=== PATIENT | female | born 1950 | race American Indian/Alaskan Native ===

== ENCOUNTER 2017-06-23 10:33 | Emergency (ER) | payer SELFPAY ==
--- NOTE | 2017-06-23 12:53 | XRay Report ---
RIGHT KNEE, 3 views: History: Right knee pain. The bony architecture is intact without evidence of fracture or dislocation. Moderate tricompartmental osteoarthritic changes are identified. No significant soft tissue abnormality is seen. IMPRESSION: Osteoarthritis.
--- NOTE | 2017-06-23 12:54 | XRay Report ---
LEFT SHOULDER: History: Left shoulder pain. Routine views demonstrate normal bony and soft tissue structures with normal joint alignment of the shoulder. Mild osteoarthritic changes are noted at the a.c. joint. IMPRESSION: No acute injury is identified. Mild degenerative changes.
[2017-06-23 14:55] LABS: Basophils % (Auto) 0.7 % (0.0-1.8); Eosinophils # (Auto) 0.1 K/mm3 (0.0-0.4); Eosinophils % (Auto) 1.6 % (0.0-4.3); Hematocrit 40.2 % (30.3-42.9); Hemoglobin 13.1 gm/dl (10.1-14.3); Lymphocytes # (Auto) 2.2 K/mm3 (1.2-5.4); Lymphocytes % (Auto) 35.5 % (13.4-35.0); Mean Corpuscular HGB Conc 33 % (30-34); Mean Corpuscular Hemoglobin 32 pg (28-32); Mean Corpuscular Volume 98 fl (79-97); Monocytes # (Auto) 0.4 K/mm3 (0.0-0.8); Monocytes % (Auto) 6.9 % (0.0-7.3); Platelet Count 239 K/mm3 (140-440); Red Blood Count 4.09 M/mm3 (3.65-5.03)
[2017-06-23 15:10] VITALS: BP 142/119
[2017-06-23 15:16] LABS: BUN/Creatinine Ratio 20; Blood Urea Nitrogen 18 mg/dL (7-17); Calcium 10.4 mg/dL (8.4-10.2); Hemolysis Index 15
--- NOTE | 2017-06-23 15:21 | Emergency Department Report ---
HPI - General Chief Complaint: Extremity Problem,Nontraumatic Time Seen by Provider: 06/23/17 14:25 - HPI HPI: This is a 66 year-old female presents to the emergency department, driving herself and to be seen, with a complaint of right knee and left shoulder pain that is acute on chronic condition for her. She has a history of arthritis and thinks that may be this has been exacerbated. There has been no recent trauma. She denies any chest pain, short of breath, nausea, vomiting or fever. She took some ibuprofen for her symptoms with only some transient relief. She is not currently have a primary care physician. She is also here for medication refill. She has a history of diabetes on both pills and insulin and is out of her glipizide, Lantus and metformin. She has history of hypertension and is out of her amlodipine. She says that she does check her blood sugar and has been taking her medications but she is about out. She says that her last blood sugar check yesterday was 140. ED Past Medical Hx - Past Medical History Hx Hypertension: Yes Hx Diabetes: Yes Hx Arthritis: Yes - Surgical History Past Surgical History?: No - Social History Smoking Status: Never Smoker Substance Use Type: None - Medications Home Medications: Home Medications Medication Instructions Recorded Confirmed Last Taken Type Insulin Glargine [Lantus VIAL] 25 unit SUB-Q QHS #1 vial 06/23/17 Unknown Rx amLODIPine [Norvasc] 10 mg PO DAILY #30 tab 06/23/17 Unknown Rx glipiZIDE [Glipizide] 10 mg PO QDAY #30 tablet 06/23/17 Unknown Rx metFORMIN [Glucophage] 1,000 mg PO BID #120 tablet 06/23/17 Unknown Rx ED Review of Systems ROS: Stated complaint: PAIN Other details as noted in HPI Comment: All other systems reviewed and negative Constitutional: denies: chills, fever Eyes: denies: eye pain, eye discharge, vision change ENT: denies: ear pain, throat pain Respiratory: denies: cough, shortness of breath, wheezing Cardiovascular: denies: chest pain, palpitations Gastrointestinal: denies: abdominal pain, nausea, diarrhea Genitourinary: denies: urgency, dysuria, discharge Musculoskeletal: arthralgia. denies: joint swelling Skin: denies: rash, lesions Neurological: denies: headache, weakness, paresthesias Physical Exam - Physical Exam Vital Signs: Vital Signs 06/23/17 06/23/17 12:09 15:08 Temperature 99.1 F Pulse Rate 113 H 100 H Respiratory 22 20 Rate Blood Pressure 164/119 Blood Pressure 142/119 [Left] O2 Sat by Pulse 98 98 Oximetry Physical Exam: GENERAL: The patient is well-developed well-nourished. HENT: Normocephalic. Atraumatic. Patient has moist mucous membranes. EYES: Extraocular motions are intact. Pupils equal reactive to light bilaterally. NECK: Supple. Trachea is midline. CHEST/LUNGS: Clear to auscultation. There is no respiratory distress noted. HEART/CARDIOVASCULAR: Regular. There is no tachycardia. There is no murmur. ABDOMEN: Abdomen is soft, nontender. Patient has normal bowel sounds. There is no abdominal distention. Obese habitus. SKIN: Skin is warm and dry. NEURO: The patient is awake, alert, and oriented. The patient is cooperative. The patient has no focal neurologic deficits. The patient has normal speech and gait. MUSCULOSKELETAL: Mild tenderness palpation to the circumferential right knee but no deformity. Negative anterior and posterior drawer test. There is no limitation range of motion. There is no evidence of acute injury. ED Course Vital Signs 06/23/17 06/23/17 12:09 15:08 Temperature 99.1 F Pulse Rate 113 H 100 H Respiratory 22 20 Rate Blood Pressure 164/119 Blood Pressure 142/119 [Left] O2 Sat by Pulse 98 98 Oximetry ED Medical Decision Making - Lab Data Result diagrams: 06/23/17 14:34 06/23/17 14:34 - Radiology Data Radiology results: image reviewed interpreted by me: X-ray of the right knee and left shoulder do not show any fracture, dislocation or any acute process. - Medical Decision Making Regarding the patient's joint pain, she has x-rays that show significant arthritis but no fracture, does occasionally anything processes. She will be given a referral for an orthopedist. Patient's labs show some hyperglycemia but she does not appear to be in any diabetic ketoacidosis. Vital stable throughout ED course. She has hypertension but it improved without any significant intervention. The patient was given a refill of her diabetes and hypertension medications. She was given referrals for primary care physician and the orthopedist. She will try to make dietary and lifestyle changes to help with her blood pressure and diabetes. She will return to the ER with any worsening of her symptoms or any acute distress. Despite her joint pain, patient was seen ambulatory in the emergency department and appeared stable. Critical Care Time: No Critical care attestation.: If time is entered above; I have spent that time in minutes in the direct care of this critically ill patient, excluding procedure time. ED Disposition Clinical Impression: Medication refill, Hyperglycemia Left shoulder pain Qualifiers: Chronicity: unspecified Qualified Code(s): M25.512 - Pain in left shoulder Right knee pain Qualifiers: Chronicity: unspecified Qualified Code(s): M25.561 - Pain in right knee Osteoarthritis Qualifiers: Osteoarthritis location: unspecified site Osteoarthritis type: unspecified Qualified Code(s): M19.90 - Unspecified osteoarthritis, unspecified site Disposition: TO HOME OR SELFCARE Is pt being admited?: Yes Condition: Stable Instructions: Osteoarthritis (ED), Arthralgia (ED), Diabetic Hyperglycemia (ED) Additional Instructions: Please follow up with a primary care physician in the next few days. I've given him a referral for a local orthopedist, Dr. Jeffries, follow-up regarding your shoulder and knee pains and your osteoarthritis. Return to the emergency Department with any worsening of your symptoms or any acute distress. Try and stay away from foods that are high in salt and caffeinated products to help with her blood pressure. Daily blood pressure log. Try and stay away from foods that are high in sugar, carbohydrates and starches to help with your blood sugar. Keep a blood sugar log. Prescriptions: Insulin Glargine [Lantus VIAL] 25 unit SUB-Q QHS #1 vial amLODIPine [Norvasc] 10 mg PO DAILY #30 tab glipiZIDE [Glipizide] 10 mg PO QDAY #30 tablet metFORMIN [Glucophage] 1,000 mg PO BID #120 tablet Referrals: PRIMARY EDWIN, [Primary Care Provider] - 3-5 Days YASIR JEFFRIES MD [Staff Physician] - 3-5 Days GOMEZ RETANA MD [Staff Physician] - 3-5 Days ALVIN SOTO MD [Staff Physician] - 3-5 Days CORWIN IVEY MD [Staff Physician] - 3-5 Days Time of Disposition: 15:24
== END 2017-06-23 15:35 | disposition home or self-care (01) ==
LOC: ED 10:33
DX: M25.512 Pain in left shoulder (principal); M25.561 Pain in right knee; E11.65 Type 2 diabetes mellitus with hyperglycemia; M19.90 Unspecified osteoarthritis, unspecified site
CPT/HCPCS: 36415; 80048; 82805; 82962; 85025; 99284